=== PATIENT | female | born 1995 | race American Indian/Alaskan Native ===

== ENCOUNTER 2021-04-21 18:03 | Emergency (ER) | payer SELFPAY ==
[2021-04-21 19:33] VITALS: BP 112/63
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
== END 2021-04-21 20:02 | disposition home or self-care (01) ==
LOC: ED 18:03
DX: M54.50 Low back pain, unspecified (principal); M25.512 Pain in left shoulder; V49.40XA Driver injured in collision with unspecified motor vehicles in traffic accident, initial encounter; Y93.89 Activity, other specified; Y92.89 Other specified places as the place of occurrence of the external cause; Y99.8 Other external cause status
CPT/HCPCS: 99282